=== PATIENT | female | born 1955 | race Caucasian/White ===

== ENCOUNTER 2016-08-31 05:54 | Inpatient (IN) | payer BC ==
[2016-08-18 09:28] LABS: BASOPHILS 0.7 %; BASOPHILS ABSOLUTE 0.04 10/3/uL (0.0-0.16); EOSINOPHILS 4.6 %; EOSINOPHILS ABSOLUTE 0.25 10/3/uL (0.0-0.53); HEMOGLOBIN 13.6 g/dL (12.0-16.0); IMMATURE GRANULOCYTES 0.2 %; IMMATURE GRANULOCYTES ABSOLUTE 0.01 10/3/uL (0.0-0.11); LYMPHOCYTES 18.4 %; LYMPHOCYTES ABSOLUTE 1.01 10/3/uL (0.67-4.30); MEAN CORPUS HGB CONC 33.7 g/dL (32.0-36.0); MEAN CORPUSCULAR HEMOGLOB 29.6 pg (26.0-34.0); MEAN PLATELET VOLUME 9.3 fL (9.2-13.0); MONOCYTES 8.7 %; MONOCYTES ABSOLUTE 0.48 10/3/uL (0.21-1.20); NEUTROPHILS 67.4 %; RBC DISTRIBUTION WIDTH 12.9 % (12.0-16.0); RED CELL COUNT 4.59 10/6/uL (4.0-5.6); WHITE BLOOD CELLS 5.5 10/3/uL (4.5-10.5)
[2016-08-18 09:32] LABS: HEMATOCRIT 40.4 % (36.0-48.0); MANUAL DIFF NO %; PLATELET COUNT 219 10/3/uL (150-400)
[2016-08-18 09:34] LABS: PARTIAL THROMBO TIME 29.4 SEC (22.5-37.2)
[2016-08-18 09:47] LABS: A/G RATIO 1.4 (0.7-1.9); ALBUMIN 3.9 G/DL (3.5-5.0); ALKALINE PHOSPHATASE 75 U/L (45-117); CALCIUM, SERUM 8.7 MG/DL (8.5-10.4); CHLORIDE, SERUM 106 MMOL/L (96-112); CO2 (CARBON DIOXIDE) 31 MMOL/L (24-34); CREATININE 0.85 MG/DL (0.55-1.02); GFR AFRICAN AMERICAN 85 ML/MIN (>=60); GFR NON AFRICAN AMERICAN 73 ML/MIN (>=60); GLOBULIN 2.8 G/DL (2.5-4.1); POTASSIUM, SERUM 3.6 MMOL/L (3.5-5.3); SGOT(AST) 20 U/L (5-40); SGPT(ALT) 19 U/L (5-65); SODIUM, SERUM 142 MMOL/L (135-148); TOTAL BILIRUBIN 0.4 MG/DL (0-1.2); TOTAL PROTEIN 6.7 G/DL (6.0-8.5)
[2016-08-18 09:48] LABS: BUN (BLOOD UREA NITROGEN) 19 MG/DL (6-23); GLUCOSE, SERUM 75 MG/DL (60-99)
[2016-08-18 09:57] LABS: ASCORBIC ACID (UR NOT ORDER) NEG (NEG); BILIRUBIN, URINE NEGATIVE (NEG); KETONE, URINE NEGATIVE (NEG); LEUKOCYTE ESTERASE(NOT OR NEG (NEG); WBC (NOT ORDERED) (RFLEX) < 1 (0-5)
--- NOTE | ~2016-08-31 | OP ---
Record Of Operation [facility] [address] [place]. [address] NAME: SHEREEN BOLDEN : 51 STATUS : ADM IN PAT#: [id number] AGE: 60 ADM/REG DATE : 08/31/16 MR#: [id number] REPORT SERV DATE: 08/31/16 DICTATED BY: SATURNINO MCCLELLAND DATE: 08/31/16 REPORT STATUS : Draft TRANSCRIBED BY: MODL DATE: 08/31/16 DATE OF PROCEDURE: 08/31/2016 PREOPERATIVE DIAGNOSIS: Severe osteoarthritis of the left hip. POSTOPERATIVE DIAGNOSIS: Severe osteoarthritis of the left hip. PROCEDURE: Left total hip arthroplasty. SURGEON: Saturnino Mcclelland M.D. DIET TECHNICIAN REGISTERED: Donovan Gutierres. ANESTHESIA: General endotracheal. ESTIMATED BLOOD LOSS: 300 mL. COMPLICATIONS: None. DRAINS: ConstaVac x1. IMPLANTS: DePuy Kaleva 54 mm outer diameter cup with a 36 mm inner diameter, +4 lateralized polyethylene liner. The femoral component was a size 4 high offset Ocean stem with a 36 mm, +5 head and neck segment. INDICATIONS FOR SURGERY: Ms Bolden is a 60-year-old female with severe osteoarthritis of her left hip. She has had unremitting pain, which has been refractory to medical management. She presents requesting the above-mentioned procedure. Risks of the procedure as detailed in the history and physical, and operative consent were discussed prior to proceeding. She fully understood and has requested to proceed. DESCRIPTION OF PROCEDURE: The patient was brought to the operating room and after adequate induction of anesthesia, was positioned in the lateral decubitus position using the hip equipment associate positioners. All appropriate pressure points were padded and axillary roll was placed. The appropriate operative site was identified and confirmed by both the surgeon and the operating room staff in time out. The hip was then prepped and draped in the usual sterile fashion. A posterior lateral approach to the hip was performed. The skin and subcutaneous tissues were incised sharply using a #10 blade. Electrocautery was used as needed to maintain hemostasis. The fascia shane and fascia over the gluteus issac were divided in line with the incision. The fibers of the gluteus issac were split bluntly. The sciatic nerve was identified and carefully protected throughout the remainder of the case. The Charnley retractor was then placed. The hip was placed in internal rotation and the superior border of the piriformis tendon identified. A full thickness capsulotomy was begun Record Of Operation [place] [id number] [facility] [place]. [address] NAME: SHEREEN BOLDEN : 51 STATUS : ADM IN PAT#: [id number] AGE: 60 ADM/REG DATE : 08/31/16 MR#: [id number] REPORT SERV DATE: 08/31/16 DICTATED BY: SATURNINO MCCLELLAND DATE: 08/31/16 REPORT STATUS : Draft TRANSCRIBED BY: CHELO DATE: 08/31/16 at the superior border of the piriformis tendon and extended anteriorly/inferiorly using an inside/out technique. A portion of the short external rotators were taken down in the capsular exposure. Leg length measurements were then taken. The hip was then dislocated posteriorly. The femoral neck was then marked and resected at the predetermined level from templating using an oscillating saw. Attention was then turned to the femur and the medial aspect of the greater trochanter was debrided of all cortical bone and soft tissue. The intramedullary canal was opened with a triple reamer. The femur was then sequentially reamed to the appropriate size Ocean stem. The femur was then sequentially broached, once again to the appropriately sized implant. The femoral neck resection was slightly revised using a calcar mill to bring it to the level of the femoral broach. The broach was then removed. Attention was then turned to the acetabulum and the acetabulum was debrided of all labral remnants, osteophytes, and the medial fibrofatty tissue was debrided and the true medial wall of the acetabulum identified. The acetabulum was then sequentially reamed from a size 43 mm hemispherical reamer to a reamer 1 mm smaller than the final component. At this level there was circumferential bleeding of subchondral bony surface. Any subchondral cysts were curetted. The true acetabular cup was then impacted into the acetabulum and a trial liner placed. A trial reduction was then performed. The leg lengths were felt to be equal. The hip was stable at its limited extension and external rotation and to 90 degrees of flexion and 80 degrees of internal rotation. The hip was also stable in the position of sleep. At this point all trial components were removed and the acetabular hole teleprinter placed in the acetabular shell. The true acetabular liner was then impacted in the clean acetabular shell. The femoral canal was then copiously irrigated with normal saline and suctioned dry. The true femoral stem was then impacted into the femur to an identical depth and identical anteversion of the trial component. A trial reduction was once again performed to assure that there was no change in leg length or stability. The true femoral head ball was then impacted into the clean femoral taper. The acetabulum was inspected to be sure it was free of all foreign matter and the hip reduced. The wound was copiously irrigated with pulsatile lavage and normal saline. The capsule was repaired using interrupted #1 Vicryl suture in [id number] fashion. The short external rotators were repaired using #5 Ethibond in horizontal mattress fashion. Drain placed deep to the fascia. The fascia was closed with interrupted #5 Ethibond sutures in [id number] fashion. The subcutaneous tissues approximated with interrupted 2-0 Vicryl suture and the skin stapled. Sterile dressing applied. The patient awakened and taken to the recovery room in stable condition. POSTOP PLAN: The patient is to be mobilized weightbearing as tolerated with physical therapy. Posterior hip dislocation precautions. The patient is to be on Coumadin and mechanical deep venous thrombosis prophylaxis. Record Of Operation [facility] [address] [facility] [place]. [address] NAME: SHEREEN BOLDEN : 51 STATUS : ADM IN [facility]#: [id number] AGE: 60 ADM/REG DATE : 08/31/16 MR#: [id number] REPORT SERV DATE: 08/31/16 DICTATED BY: SATURNINO MCCLELLAND DATE: 08/31/16 REPORT STATUS : Draft TRANSCRIBED BY: CHELO DATE: 08/31/16 LUCERO/CHELO Saturnino Mcclelland M.D. / [id number] CC: Saturnino Mcclelland M.D.
[~2016-08-31 05:54] MED LIST: ALEVE220 MG PO; ATEN25 PO; FISH-EPA1000 MG PO; MULTIPLE VIT PO; SYN1 PO; ULTRAM50 PO
[2016-09-01 07:13] LABS: HEMOGLOBIN 11.9 g/dL (12.0-16.0)
[2016-09-01 07:14] LABS: HEMATOCRIT 35.5 % (36.0-48.0)
[2016-09-01 07:21] LABS: PROTIME (NOT ORD) 12.8 SEC (12.0-14.5)
[2016-09-01 07:22] LABS: CALCIUM, SERUM 8.4 MG/DL (8.5-10.4); CHLORIDE, SERUM 105 MMOL/L (96-112); CO2 (CARBON DIOXIDE) 33 MMOL/L (24-34); CREATININE 0.79 MG/DL (0.55-1.02); GFR AFRICAN AMERICAN 93 ML/MIN (>=60); GFR NON AFRICAN AMERICAN 80 ML/MIN (>=60); POTASSIUM, SERUM 3.8 MMOL/L (3.5-5.3); SODIUM, SERUM 142 MMOL/L (135-148)
[2016-09-01 07:23] LABS: BUN (BLOOD UREA NITROGEN) 14 MG/DL (6-23); GLUCOSE, SERUM 108 MG/DL (60-99)
[2016-09-01] MEDS ORDERED: OXYCOD PO (10:35)
[2016-09-01] MEDS ORDERED: C5 (10:35)
[2016-09-01] MEDS ORDERED: METHOC500B PO (10:35)
[2016-09-01] MEDS ORDERED: ZOFRAN4 PO (10:35)
== END 2016-09-01 16:25 | disposition home or self-care (01) | DRG 470 ==
LOC: SDC/OF 05:54 → PACU 10:11 → 3JRC 10:48
PROVIDERS: Specialist
PROC: 0SRB02A Replacement of Left Hip Joint with Metal on Polyethylene Synthetic Substitute, Uncemented, Open Approach (ICD-10-PCS; principal; 2016-08-31 07:45)
DX: M16.12 Unilateral primary osteoarthritis, left hip (principal); E03.9 Hypothyroidism, unspecified; Z98.890 Other specified postprocedural states; Z90.49 Acquired absence of other specified parts of digestive tract; Z83.3 Family history of diabetes mellitus; Z82.49 Family history of ischemic heart disease and other diseases of the circulatory system; Z80.8 Family history of malignant neoplasm of other organs or systems
CPT/HCPCS: 36415; 71020; 72170; 80048; 80053; 81001; 85014; 85018; 85025; 85610; 85730; 86850; 86900; 86901; 87641; 88304; 88311; 93005; 97110-GP; 97116-GP; 97150-GP; 97161-GP; 97164-GP; 97165-GO; A9270-GY; C1776; J0690; J1170; J2250; J2405; J2550; J2710; J3010